=== PATIENT | male | born 1995 | race Two or more races ===

== ENCOUNTER → 2020-04-29 | Outpatient (CLI) | payer OTHER | END | disposition home or self-care (01) | LOC: OFIC 805 14:00 | PROVIDERS: ATTEND Otolaryngology | DX: H93.8X2 Other specified disorders of left ear (principal); H61.22 Impacted cerumen, left ear; H72.92 Unspecified perforation of tympanic membrane, left ear; H90.42 Sensorineural hearing loss, unilateral, left ear, with unrestricted hearing on the contralateral side ==

== ENCOUNTER 2020-05-06 09:13 | Outpatient (CLI) | payer OTHER | END 2020-05-06 10:30 | disposition home or self-care (01) | LOC: OFIC 805 09:13 | PROVIDERS: ATTEND Otolaryngology | DX: H73.892 Other specified disorders of tympanic membrane, left ear (principal); H91.8X2 Other specified hearing loss, left ear ==